=== PATIENT | female | born 1990 | race Caucasian/White ===

== ENCOUNTER 2020-07-25 01:06 | Emergency (ER) | payer OTHER, SELFPAY ==
[2020-07-25 01:24] VITALS: BP 107/63; PULSE 99; RESP 16; TEMP 37.2; O2SAT 99; BMI 30.9
[2020-07-25 02:01] LABS: Glucose Urine UA NEG (NEG); Leukocyte Esterase Urine NEG (NEG); Nitrite Urine NEG (NEG); PH 7.5 (5.0-8.0); Specific Gravity - Urine 1.015 (1.005-1.025); Urine Blood NEG (NEG); Urine Ketones >=80 MG/DL (NEG); Urine Protein 1+ MG/DL (NEG-TRACE)
[2020-07-25 02:02] LABS: Appearance Urine CLEAR; Color Urine DARK YELLOW
--- NOTE | 2020-07-25 02:06 | ED.NAVMDI ---
HPI - Nausea/Vomiting/Diarrhea General Chief complaint: Nausea/Vomiting/Diarrhea Stated complaint: VOMITING Time Seen by Provider: 07/25/20 01:08 Source: patient Mode of arrival: ambulatory History of Present Illness HPI Narrative: This is a 29-year-old female who states that she began developing nausea and vomiting 30 minutes after eating lunch of a vegetarian omlette with home fries and states she was the only 1 who ate this. She denies any associated fevers, chills, diarrhea, urinary pain/burning/frequency. She does have the IUD in place and denies abdominal pain or sick contacts. She states that since that time she has only been able to handle small amounts of water but becomes nauseous when she eats food. Related Data Previous Rx's Medication Instructions Recorded ondansetron HCl [Zofran] 4 mg PO Q6H PRN 2 Days #7 tab 07/25/20 Allergies Allergy/AdvReac Type Severity Reaction Status Date / Time amoxicillin Allergy Hives Verified 07/25/20 01:23 cephalexin [From Keflex] Allergy Hives Verified 07/25/20 01:23 ciprofloxacin [From Cipro] Allergy Hives Verified 07/25/20 01:23 clindamycin Allergy Hives Verified 07/25/20 01:23 Penicillins Allergy Hives Verified 07/25/20 01:23 Review of Systems Review of Systems: Pertinent positives and negatives as stated in the HPI 10 point review of systems is otherwise negative. [facility] Past Medical History Source: nursing notes reviewed Social History Social History Smoking Status: Smoker, status unknown Use of substances other than those prescribed or required for medical reasons: No Advance Directives: No Physical Exam Vital Signs: Vital Signs: Last Vital Signs Temp 99.0 F 07/25/20 01:24 Pulse 99 07/25/20 01:24 Resp 16 07/25/20 01:24 BP 107/63 07/25/20 01:24 Pulse Ox 99 07/25/20 01:24 Body Mass Index 30.9 VITAL SIGNS: Reviewed. GENERAL: Well developed, well nourished, in no acute distress. HEAD: Normocephalic/atraumatic EYES: PERRLA, EOMI NOSE: Nares patent bilateral OROPHARYNX: no oral lesions noted, posterior pharynx clear, moist mucosa NECK: Supple, no adenopathy LUNGS: Normal breath sounds. No adventitious sounds or accessory muscle use. SpO2<99> CARDIOVASCULAR: Regular rate and rhythm without noted murmurs ABDOMEN: Soft, non-tender, non-distended with bowel sounds. SKIN: Inspection of the skin reveals no rashes NEUROLOGIC: Alert and oriented x 4. Course Course Course Narrative: This is a 29-year-old female with history and clinical presentation food poisoning, gastroenteritis, will rule out ectopic and clinically low suspicion for UTI/pyelonephritis/renal colic. Review of all investigations for any acute findings and patient has continued to tolerate oral fluids and reports improvement in her symptoms. MDM - Nausea/Vomiting/Diarrhea Lab Data Labs: Lab Results 07/25/20 07/25/20 07/25/20 Range/Units 01:45 01:45 01:45 Urine Color DARK YELLOW Urine Appearance CLEAR Urine pH 7.5 (5.0-8.0) Ur Specific [place] 1.015 (1.005-1.025) Urine Protein 1+ H (NEG-TRACE) MG/DL Urine Glucose (UA) NEG (NEG) MG/DL Urine Ketones >=80 (NEG) MG/DL Urine Blood NEG (NEG) Urine Nitrite NEG (NEG) Ur Leukocyte Esterase NEG (NEG) Urine RBC 0-2 (0) /HPF Urine WBC 0 (0-4) /HPF Ur Squamous Epith Cells 1+ /LPF Urine Bacteria NONE /LPF Urine Mucus 1+ /LPF Urine Test NEGATIVE (NEGATIVE) Urine Opiates Screen Not Detected (Not Detect) Ur Barbiturates Screen Not Detected (Not Detect) Ur Phencyclidine Scrn Not Detected (Not Detect) Ur Amphetamines Screen Not Detected (Not Detect) U Benzodiazepines Scrn Not Detected (Not Detect) Urine Cocaine Screen Not Detected (Not Detect) U Marijuana (THC) Screen POSITIVE H (Not Detect) Discharge Plan Discharge Clinical Impression: Marijuana use Nausea and vomiting Qualifiers: Vomiting type: unspecified Vomiting Intractability: non-intractable Qualified Code(s): R11.2 - Nausea with vomiting, unspecified Patient Disposition: Home, Self-Care Instructions: Acute Nausea and Vomiting (ED) Additional Instructions: 1. You have been provided with a prescription for antinausea medication and that should be used as directed especially to assist and your rehydration. 2. Continue to increase your water intake. 3. Follow-up with your primary care provider in the next 2-3 days. Do not hesitate to return to the emergency room if you develop any acute worsening of her symptoms. Prescriptions: New ondansetron HCl [Zofran] 4 mg tablet 4 mg PO Q6H PRN (Reason: nausea and vomiting) 2 Days Qty: 7 RF: 0 Referrals: Physician,Unknown [Primary Care Provider] - 2 days
[2020-07-25 02:16] LABS: Mucus Urine 1+ /LPF; RBC Urine 0-2 /HPF (0); Squamous Epithelial Cell Urine 1+ /LPF; UPreg QC Valid YES; Urine Pregnancy NEGATIVE (NEGATIVE); WBC Urine 0 /HPF (0-4)
[2020-07-25 02:23] LABS: Amphetamine Screen Urine Not Detected (Not Detect); Barbiturates, Urine Not Detected (Not Detect); Benzodiazepines Screen Urine Not Detected (Not Detect); Cannabinoid Screen Urine POSITIVE (Not Detect); Cocaine Screen Urine Not Detected (Not Detect); Opiate Screen Urine Not Detected (Not Detect); Phencyclidine Screen Urine Not Detected (Not Detect)
== END 2020-07-25 03:24 | disposition home or self-care (01) ==
PROVIDERS: Emergency Provider Student in an Organized Health Care Education/Training Program
DX: R11.2 Nausea with vomiting, unspecified (principal); F12.90 Cannabis use, unspecified, uncomplicated
CPT/HCPCS: 80307; 81001; 81003; 81025; 99283; 99284